=== PATIENT | male | born 1950 ===

== ENCOUNTER 2017-06-10 15:06 | Outpatient (CLI) | payer MEDICARE | END 2017-06-10 15:07 | disposition home or self-care (01) | LOC: SC 15:06 | PROVIDERS: ATTEND Internal Medicine Pulmonary Disease | DX: H54.7 Unspecified visual loss (principal); J45.909 Unspecified asthma, uncomplicated; R53.83 Other fatigue | CPT/HCPCS: 99203; G0463; 99212 ==

== ENCOUNTER 2017-07-10 11:39 | Outpatient (CLI) | payer MEDICARE | END 2017-07-10 11:40 | disposition home or self-care (01) | LOC: DI.N 11:39 | PROVIDERS: ATTEND Internal Medicine | DX: Z53.9 Procedure and treatment not carried out, unspecified reason (principal) ==